=== PATIENT | female | born 1960 | race Caucasian/White ===

== ENCOUNTER 2018-10-26 08:35 | Emergency (ER) | payer OTHER ==
[~2018-10-26] VITALS: Ht 170.2 cm; Wt 86.9 kg
[2018-10-26 08:45] VITALS: BP 159/108
--- NOTE | 2018-10-26 08:48 | NUR ---
PT AMBULATES TO BED 9
--- NOTE | 2018-10-26 08:50 | NUR ---
PATIENT PRESENTS TO THE ED WITH C/O BILATERAL WRIST AND ELBOW PAIN. PER PATIENT SHE FELL ON HER BACK WHILE DANCING LAST NIGHT AND USED HER ELBOWS TO SUPPORT HER FALL. DENIES ANY MEDICAL HX
--- NOTE | 2018-10-26 09:00 | NUR ---
XRAY AT BEDSIDE
--- NOTE | 2018-10-26 09:04 | NUR ---
Patient being evaluated by physician at bedside.
[2018-10-26] MEDS ORDERED: HYDROcodone/APAP 10/325 MG 1 TAB TAB PO ONE (09:10)
[2018-10-26 09:29] VITALS: BP 159/108
--- NOTE | 2018-10-26 09:30 | NUR ---
Patient discharged with v/s stable. Written and verbal after care instructions given and explained. Patient alert, oriented and verbalized understanding of instructions. Ambulatory with steady gait. All questions addressed prior to discharge. ID band removed. Patient advised to follow up with PMD. Rx of ULTRAM given. Patient educated on indication of medication including possible reaction and side effects. Opportunity to ask questions provided and answered.
== END 2018-10-26 09:30 | disposition home or self-care (01) ==
LOC: MED 08:35
DX: S52.511A Displaced fracture of right radial styloid process, initial encounter for closed fracture (principal); S52.502A Unspecified fracture of the lower end of left radius, initial encounter for closed fracture; W01.0XXA Fall on same level from slipping, tripping and stumbling without subsequent striking against object, initial encounter; Y93.41 Activity, dancing; Y92.89 Other specified places as the place of occurrence of the external cause; Y99.8 Other external cause status
CPT/HCPCS: 73110; 99283